=== PATIENT | female | born 1950 | race Caucasian/White ===

== ENCOUNTER → 2020-03-24 | Outpatient (CLI) | payer MEDICARE, BC | LOC: M.LAB 15:55 | PROVIDERS: ATTEND Surgery | DX: Z01.812 Encounter for preprocedural laboratory examination (principal); Z20.828 Contact with and (suspected) exposure to other viral communicable diseases; K81.0 Acute cholecystitis ==

== ENCOUNTER → 2020-03-28 | Day surgery (SDC) | payer MEDICARE, BC ==
[~2020-03-28] MED LIST: GLIPIZIDE ER5 MG PO; JANUVIA100 MG PO; LEVO-T25 MCG PO; LIPITOR 20 MG T20 M1 PO; LOSARTAN-HCTZ1 EAC3 PO; METFORMIN HCL500 M3 PO; NORCO 5-325 TA1 EAC2 PO
--- NOTE | ~2020-03-28 | OP ---
[facility] [address] [place] [address] OPERATIVE REPORT Name: BETTIE SHAW Room: [facility]#: [id number] Admission: 03/28/20 Attend Phys: Kavin May Discharge: Date of : 48 Report #: [id number] THIS REPORT FOR: //name// cc: Maritza Velazquez MD, Emily G. MD ~ CC: Maritza May DATE OF SERVICE: 03/28/2020 PREOPERATIVE DIAGNOSES: Chronic cholecystitis, gallbladder polyps. POSTOPERATIVE DIAGNOSES: Chronic cholecystitis, gallbladder polyps. OPERATION: Laparoscopic cholecystectomy. SURGEON: Kavin May MD ANESTHESIA: General. ESTIMATED BLOOD LOSS: Minimal. SPECIMEN: Gallbladder. DESCRIPTION OF PROCEDURE: After informed consent was obtained, the patient was brought to the operating room and placed supine. SCDs were placed and working, preoperative antibiotics were administered, general anesthesia was induced. The abdomen was prepped and draped in the usual sterile fashion. A 10 mm incision was made above the umbilicus. Fascia was incised and a trocar was placed. Pneumoperitoneum was established. Three right upper quadrant 5 mm ports were placed. Gallbladder was grasped at the fundus and retracted cephalad. Infundibulum was grasped and retracted laterally. I dissected out the cystic duct and cystic artery. I dissected out the cystic plate. The cystic duct and artery were fully identified. The duct and artery were clipped and ligated leaving 2 clips on the remaining duct and one on the remaining artery. Gallbladder was then taken off the liver bed with electrocautery. It was placed into an Endopouch and removed. Fascia was then closed with a iiyudi-si-hhatk 0 Vicryl. Skin was closed with 4-0 Monocryl. Incisions were sealed with Dermabond. COMPLICATIONS: [place] [address] OPERATIVE REPORT Name: ALISHABETTIE DODD Room: [facility]#: [id number] Admission: 03/28/20 Attend Phys: Kavin May Discharge: Date of : 48 Report #: [id number] DISPOSITION: The patient was taken to recovery in satisfactory condition. By: [id number] May MD /adriana
[2020-03-28 06:43] LABS: HEMATOCRIT 33.5 % (37.0-47.0); HEMOGLOBIN 11.3 gm/dL (12.0-15.0); MCH 28.3 pg (26.0-34.0); MCHC 33.7 g/dL (28.0-37.0); MCV 83.9 fL (80.0-100.0); MPV 7.5 fl. (7.2-11.1); RBC 3.99 mil/uL (4.20-5.00); RDW-CV 14.6 % (10.5-14.5); WBC 8.7 thou/uL (4.0-11.0)
[2020-03-28 06:58] LABS: CALCIUM 9.8 mg/dL (8.5-10.1); CREATININE 1.4 mg/dL (0.6-1.3); POTASSIUM 3.8 mmol/L (3.5-5.1)
[2020-03-28 07:03] LABS: ALBUMIN 2.8 g/dL (3.4-5.0); TOTAL BILIRUBIN 0.7 mg/dL (<0.1-1.0); TOTAL PROTEIN 6.5 g/dL (6.4-8.2)
--- NOTE | 2020-03-28 15:42 | EKG ---
[place] [address] ELECTROCARDIOGRAM REPORT Name: BETTIE SHAW Room: [facility]#: [id number] Admission: 03/28/20 Attend Phys: Kavin Shaffer Discharge: Date of : 48 Date of Service: 03/28/2040 Report #: [id number] THIS REPORT FOR: //name// [facility] Test Date: 2020-03-28 Test Time: 06:40:39 Pat Name: BETTIE SHAW Department: Room: Gender: F Reinforcing Rod Layer: LORENZO LEMONS : 1950 Requested By: Kavin May Order Number: [id number] Reading MD: Josiah Kent Measurements Intervals Ector Rate: 91 P: 54 MA: 146 QRS: 13 QRSD: 90 T: 48 QT: 352 QTc: 434 Interpretive Statements Sinus rhythm Low voltage, precordial leads No previous ECG available for comparison Electronically Signed On 03-28-2020 15:42:12 [employer] by Josiah Kent [email or web address] <ELECTRONICALLY SIGNED> By: Michela Kent MD, [facility] 03/28/20 1542 Michela Kent MD, [facility] /EPI
--- NOTE | 2020-03-31 15:07 | PATH ---
[address] [address] PATHOLOGY RPT PROCEDURE Name: BETTIE SHAW Room: [facility]#: [id number] Admission: 03/28/20 Date of : 48 Discharge: Report #: [id number] Path Case #: [id number] [facility] Accession Number: [id number] . 01 Material submitted: . gallbladder - GALLBLADDER . 01 Clinical history: . CHOLECYSTITIS . 02 Diagnosis: Gallbladder: - Chronic cholecystitis. . (LULI:mm; 03/31/2020) [facility] 03/31/2020 1256 Local . 02 Electronically signed: . Harman Bautista MD, Pathologist NPI- [id number] . 01 Gross description: . The specimen is received in formalin, labeled "Bettie Shaw", "gallbladder". Received is an intact gallbladder measuring 7.9 x 3.6 x 3.0 cm. The serosal surface is wrinkled, shiny and pale yellow-dark green. Opening the gallbladder reveals a dark green, velvety, bile-stained mucosa with no polypoid adhesions or solid masses identified. The gallbladder wall measures 0.1-0.2 cm in thickness. No calculi are identified within the gallbladder or container. Wrapper Caser sections are submitted in cassette A1.(SNA; 03/29/2020) [facility] 03/31/2020 1255 Local . 02 Pathologist provided ICD-10: K81.1 . 02 CPT . 876442 Specimen Comment: A courtesy copy of this report has been sent to [phone] Specimen Comment: [phone] Specimen Comment: Report sent to / DR THURMAN Performed at: [address] [id number] MD Gavin Henriquez MD Phone: [phone] Performed at: [address] [id number] [place] [address] PATHOLOGY RPT PROCEDURE Name: BETTIE SHAW Room: [facility] Edgar#: [id number] Admission: 03/28/20 Date of : 48 Discharge: Report #: [id number] Path Case #: [id number] MD Harman Bautista MD Phone: [phone]
== END | disposition home or self-care (01) ==
LOC: M.SUR 06:08
PROVIDERS: ATTEND Surgery
DX: K81.1 Chronic cholecystitis (principal); R10.11 Right upper quadrant pain; E11.9 Type 2 diabetes mellitus without complications; Z98.890 Other specified postprocedural states; Z79.899 Other long term (current) drug therapy; Z88.0 Allergy status to penicillin